=== PATIENT | female | born 1960 | race Caucasian/White ===

== ENCOUNTER 2019-06-30 08:00 | Outpatient (CLI) | payer BC ==
[2014-07-28 10:13] VITALS: BMI 32.6
[~2019-06-30 08:00] MED LIST: HYDROCODON-ACE1 EAC7 PO; IBUPROFEN600 MG PO; LAMISIL250 MG PO; LISINOPRIL-HCTZ1 T13 PO; LOPRESSOR25 MG PO; PRILOSEC20 MG PO; ZOFRAN4 MG PO
== END 2019-06-30 23:59 | disposition home or self-care (01) ==
LOC: D.MAMMO 08:00
PROVIDERS: ATTEND Family Medicine
DX: Z12.31 Encounter for screening mammogram for malignant neoplasm of breast (principal)

== ENCOUNTER 2019-07-22 14:00 | Outpatient (CLI) | payer BC ==
[2014-07-28 10:13] VITALS: BMI 32.6
== END 2019-07-22 14:30 | disposition home or self-care (01) ==
LOC: D.MAMMO 14:00
PROVIDERS: ATTEND Family Medicine
DX: R92.8 Other abnormal and inconclusive findings on diagnostic imaging of breast (principal)

== ENCOUNTER 2020-02-23 09:00 | Outpatient (CLI) | payer BC ==
[2014-07-28 10:13] VITALS: BMI 32.6
== END 2020-02-23 10:00 | disposition home or self-care (01) ==
LOC: D.MAMMO 09:00
PROVIDERS: ATTEND Family Medicine
DX: Z12.31 Encounter for screening mammogram for malignant neoplasm of breast (principal)